=== PATIENT | female | born 1985 | race Two or more races ===

== ENCOUNTER 2025-04-06 17:29 | Inpatient (IN) | payer OTHER ==
[~2025-04-06] VITALS: Ht 157.5 cm; Wt 1.4 kg
[2025-04-06 17:22] VITALS: BP 129/84
[2025-04-06 17:30] VITALS: BP 129/84; O2SAT 99
[2025-04-06] MEDS ORDERED: RINGERS SOLUTION,LACTATED 1,000 ML IV SCH (17:45)
[2025-04-06] MEDS ORDERED: PRENATAL + DHA1 EAC1 PO (17:51)
[2025-04-06 18:55] LABS: BASO % 0.2 % (0.1-1.2); EOS # 0.03 (0.04-0.54); EOS % 0.4 % (0.7-7.0); LYMPH # 1.62 (1.18-3.74); LYMPH % 20.1 % (19.3-53.1); MEAN PLATELET VOLUME 12.70 fl (9.4-12.4); MONO # 0.66 (0.24-0.82); MONO % 8.2 % (4.7-12.5); NEUT # 5.70 (1.56-6.13); NEUT % 70.7 % (34.0-71.1); RED CELL DISTRIBUTION WIDTH 12.1 % (11.6-14.4)
[2025-04-06 18:56] LABS: URINE APPEARANCE Clear; URINE BILIRRUBIN Negative (NEGATIVE); URINE BLOOD Trace; URINE COLOR Yellow; URINE GLUCOSE Negative (NEGATIVE); URINE KETONE Trace (NEGATIVE); URINE LEUKOCYTE Negative; URINE NITRATE Negative; URINE PROTEIN >=1000 (NEGATIVE); URINE UROBILINOGEN 0.2 E.U./dl
[2025-04-06 18:59] LABS: URINE BACTERIA 2073.6 uL (0.0-1933); URINE CAST 4.25 uL (0.0-1.40); URINE EPITHELIAL CELLS 21.6 uL (0.0-38.8); URINE RBC 4.8 uL (0.0-20.8); URINE WBC 32.9 uL (0.0-23.2)
[2025-04-06 19:12] LABS: TYPE CELLS SQUAMOUS; URINE MUCUS SCANT
[2025-04-06 19:14] LABS: URINE CRYSTALS FEW /HPF
[2025-04-06 19:14] LABS: INR < 0.93
[2025-04-06 19:24] LABS: ALT/SGPT 40.0 U/L (12-78); AST/SGOT 28.0 U/L (15-37); BILIRUBIN TOTAL 0.12 mg/dL (0.3-1.2); BUN CREA RATIO 22.0 (7.0-25.0); CREATININE SERUM 0.76 mg/dL (0.55-1.02); GFR 84.72; GLOBULINA 2.7 G/DL (2.4-3.5); GLUCOSE FASTING 91.0 mg/dL (65-100); OSMOLALITY SERUM 279.0 MOSM/KG (275-295)
[2025-04-06 19:45] VITALS: BP 137/81; O2SAT 99
[2025-04-06 23:25] VITALS: BP 145/84
[2025-04-07] VITALS (8 sets, daily range): BP systolic 117–159; BP diastolic 70–90; O2SAT 99–100
[2025-04-07 17:45] LABS: BASO % 0.4 % (0.1-1.2); EOS # 0.04 (0.04-0.54); EOS % 0.6 % (0.7-7.0); LYMPH # 1.73 (1.18-3.74); LYMPH % 24.2 % (19.3-53.1); MEAN PLATELET VOLUME 12.20 fl (9.4-12.4); MONO # 0.59 (0.24-0.82); MONO % 8.3 % (4.7-12.5); NEUT # 4.74 (1.56-6.13); NEUT % 66.2 % (34.0-71.1); RED CELL DISTRIBUTION WIDTH 12.1 % (11.6-14.4)
[2025-04-07 18:21] LABS: URINE PROT QUANT 24HR 448.6 MG/DL
[2025-04-07 19:24] LABS: URINE PROT QUANT 24 HR 11215.0 MG/24HR (42-225)
[2025-04-07 19:27] LABS: CREATINE CLEARANCE 100.3 ML/MIN (97-137); CREATININE SERUM 0.76 mg/dL (0.6-1.0)
[2025-04-07] MEDS ORDERED: BETAMETHASONE ACETATE,SOD PHOS 30 MG/5 ML ML IM SCH (20:38)
[2025-04-07] MEDS ORDERED: LABETALOL HCL 100 MG/20 ML ML IV PRN (21:15)
[2025-04-08 04:28] VITALS: BP 115/76
[2025-04-08 07:14] VITALS: BP 127/74
[2025-04-08 10:00] VITALS: BP 118/73; O2SAT 98
[2025-04-08 10:09] LABS: BASO % 0.1 % (0.1-1.2); EOS # 0.00 (0.04-0.54); EOS % 0.0 % (0.7-7.0); LYMPH # 1.06 (1.18-3.74); LYMPH % 10.5 % (19.3-53.1); MEAN PLATELET VOLUME 12.40 fl (9.4-12.4); MONO # 0.17 (0.24-0.82); MONO % 1.7 % (4.7-12.5); NEUT # 8.75 (1.56-6.13); NEUT % 87.0 % (34.0-71.1); RED CELL DISTRIBUTION WIDTH 12.1 % (11.6-14.4)
[2025-04-08 10:32] LABS: BUN CREA RATIO 20.0 (7.0-25.0); CREATININE SERUM 1.03 mg/dL (0.55-1.02); GFR 59.65; GLUCOSE FASTING 155.0 mg/dL (65-100); LDH 171.0 U/L (84-246); OSMOLALITY SERUM 287.0 MOSM/KG (275-295)
[2025-04-08] MEDS ORDERED: BETAMETHASONE ACETATE,SOD PHOS 30 MG/5 ML ML IM SCH ×2 (10:45→21:00)
[2025-04-08 10:58] LABS: ALT/SGPT 37 U/L (12-78); AST/SGOT 26 U/L (15-37)
[2025-04-08 11:40] VITALS: BP 130/78; O2SAT 99
[2025-04-08 15:08] VITALS: BP 131/78
[2025-04-08] MEDS ORDERED: CEFAZOLIN SODIUM 1,000 MG VIAL IV ONE (16:00)
[2025-04-08] MEDS ORDERED: OXYTOCIN 10 UNIT/ML (10ML) IV ONE (20:15)
[2025-04-08] MEDS ORDERED: ERYTHROMYCIN BASE OPHT 1GM EACH TUBE OP ONE (20:15)
[2025-04-08] MEDS ORDERED: MORPHINE SULFATE 4 MG/ML VIAL IV ONE (20:30)
[2025-04-08] MEDS ORDERED: MORPHINE SULFATE 4 MG/ML VIAL IV SCH (20:45)
[2025-04-08 21:50] VITALS: BP 128/78; O2SAT 97
[2025-04-09] VITALS: BP 117/74
[2025-04-09 06:32] LABS: BASO % 0.1 % (0.1-1.2); EOS # 0.00 (0.04-0.54); EOS % 0.0 % (0.7-7.0); LYMPH # 1.45 (1.18-3.74); LYMPH % 7.1 % (19.3-53.1); MEAN PLATELET VOLUME 12.00 fl (9.4-12.4); MONO # 1.01 (0.24-0.82); MONO % 5.0 % (4.7-12.5); NEUT # 17.60 (1.56-6.13); NEUT % 86.6 % (34.0-71.1); RED CELL DISTRIBUTION WIDTH 12.0 % (11.6-14.4)
[2025-04-09 07:45] LABS: ALT/SGPT 28.0 U/L (12-78); AST/SGOT 26.0 U/L (15-37); BILIRUBIN TOTAL 0.14 mg/dL (0.3-1.2); BUN CREA RATIO 34.0 (7.0-25.0); CREATININE SERUM 0.7 mg/dL (0.55-1.02); GFR 93.16; GLOBULINA 2.4 G/DL (2.4-3.5); GLUCOSE FASTING 105.0 mg/dL (65-100); OSMOLALITY SERUM 282.0 MOSM/KG (275-295)
[2025-04-09 08:00] VITALS: BP 150/80
[2025-04-09] MEDS ORDERED: ACETAMINOPHEN 325 MG TABLET PO SCH (08:00)
[2025-04-09] MEDS ORDERED: OxyCODONE HCL 5 MG TABLET (ROXICODONE) PO SCH (08:00)
[2025-04-09] MEDS ORDERED: DOCUSATE SODIUM 100MG CAP PO SCH (09:00)
[2025-04-09] MEDS ORDERED: SIMETHICONE 125 MG CAPSULE PO SCH (09:00)
[2025-04-09 12:40] VITALS: BP 145/80
[2025-04-09 18:09] VITALS: BP 150/89
[2025-04-10] VITALS: BP 129/74
[2025-04-10 08:16] VITALS: BP 144/86
[2025-04-10 14:03] VITALS: BP 129/75
[2025-04-10 16:00] VITALS: BP 143/84
[2025-04-11] VITALS: BP 130/80
[2025-04-11 06:40] LABS: BASO % 0.1 % (0.1-1.2); EOS # 0.04 (0.04-0.54); EOS % 0.5 % (0.7-7.0); LYMPH # 1.86 (1.18-3.74); LYMPH % 21.5 % (19.3-53.1); MEAN PLATELET VOLUME 11.10 fl (9.4-12.4); MONO # 0.65 (0.24-0.82); MONO % 7.5 % (4.7-12.5); NEUT # 6.05 (1.56-6.13); NEUT % 69.8 % (34.0-71.1); RED CELL DISTRIBUTION WIDTH 12.1 % (11.6-14.4)
[2025-04-11 06:59] LABS: URINE APPEARANCE Cloudy; URINE BILIRRUBIN Negative (NEGATIVE); URINE BLOOD Large; URINE COLOR Orange; URINE GLUCOSE Negative (NEGATIVE); URINE KETONE Negative (NEGATIVE); URINE LEUKOCYTE Trace; URINE NITRATE Negative; URINE UROBILINOGEN 0.2 E.U./dl
[2025-04-11 07:00] LABS: URINE BACTERIA 85.1 uL (0.0-1933); URINE EPITHELIAL CELLS 67.6 uL (0.0-38.8); URINE RBC 3566.1 uL (0.0-20.8); URINE WBC 129.5 uL (0.0-23.2)
[2025-04-11 07:10] LABS: ALT/SGPT 33.0 U/L (12-78); AST/SGOT 29.0 U/L (15-37); BILIRUBIN TOTAL 0.16 mg/dL (0.3-1.2); BUN CREA RATIO 33.0 (7.0-25.0); CREATININE SERUM 0.43 mg/dL (0.55-1.02); GFR 163.47; GLOBULINA 2.4 G/DL (2.4-3.5); GLUCOSE FASTING 71.0 mg/dL (65-100); OSMOLALITY SERUM 280.0 MOSM/KG (275-295)
[2025-04-11 07:16] LABS: URINE CAST 0.29 uL (0.0-1.40)
[2025-04-11 07:18] LABS: URINE PROTEIN 100 (NEGATIVE)
[2025-04-11 08:00] VITALS: BP 118/84
[2025-04-11] MEDS ORDERED: IRON/V.C/V.B12/FOLIC A/VIT. E 1 CAPL CAPLET PO SCH (09:10)
[2025-04-11 16:00] VITALS: BP 140/80
[2025-04-12] VITALS: BP 130/77
[2025-04-12 06:15] LABS: BASO % 0.1 % (0.1-1.2); EOS # 0.12 (0.04-0.54); EOS % 1.5 % (0.7-7.0); LYMPH # 1.87 (1.18-3.74); LYMPH % 23.1 % (19.3-53.1); MEAN PLATELET VOLUME 10.60 fl (9.4-12.4); MONO # 0.56 (0.24-0.82); MONO % 6.9 % (4.7-12.5); NEUT # 5.47 (1.56-6.13); NEUT % 67.8 % (34.0-71.1); RED CELL DISTRIBUTION WIDTH 12.2 % (11.6-14.4)
[2025-04-12 09:29] VITALS: BP 140/85
== END 2025-04-12 13:42 | disposition home or self-care (01) | DRG 788 ==
LOC: OBS/DEL 17:29 → LDR 04-07 20:31 → OB/GYN 04-07 20:31
PROVIDERS: Obstetrics & Gynecology; Student in an Organized Health Care Education/Training Program; ADMIT Specialist; ATTEND Specialist
PROC: 4A1HXCZ Monitoring of Products of Conception, Cardiac Rate, External Approach (ICD-10-PCS; 2025-04-07)
PROC: 10D00Z1 Extraction of Products of Conception, Low, Open Approach (ICD-10-PCS; principal; 2025-04-08 16:15)
DX: O14.14 Severe pre-eclampsia complicating childbirth (principal); O60.14X0 Preterm labor third trimester with preterm delivery third trimester, not applicable or unspecified; O36.5930 Maternal care for other known or suspected poor fetal growth, third trimester, not applicable or unspecified; O36.8130 Decreased fetal movements, third trimester, not applicable or unspecified; O32.8XX0 Maternal care for other malpresentation of fetus, not applicable or unspecified; O45.093 Premature separation of placenta with other coagulation defect, third trimester; D69.6 Thrombocytopenia, unspecified; Z37.0 Single live birth; O13.4 Gestational [pregnancy-induced] hypertension without significant proteinuria, complicating childbirth; Z3A.33 33 weeks gestation of pregnancy